=== PATIENT | female | born 1990 | race Caucasian/White ===

== ENCOUNTER 2020-12-10 21:41 | Emergency (ER) | payer OTHER ==
[~2020-12-10] VITALS: Ht 182.9 cm; Wt 113.4 kg
[2020-12-10 21:57] VITALS: BP 148/93
--- NOTE | 2020-12-10 21:59 | NUR ---
To ER bed 04.
--- NOTE | 2020-12-10 22:10 | NUR ---
PT PRESENTED TO ED C/O VAGINAL BLEEDING X 2 DAYS. PT STATES SHES 3 WEEKS AND REPORTS SMAL BLOOD CLOTS IN HER BLOOD. +SCANT BRIGHT RED BLOOD NOTED. +NUASEA AND ABD CRAMPING. PT IS (1 LIVE TERM , AND 1 ). DENIES ANY FOULD VAGINAL DISCHARGE, DYSURIA, VOMITING, OR LIGHTHEADEDNESS. +MAJOR. PT STATES, "I HAD A TOTAL OF 2 PADS OF SMALL AMOUNT OF BLOOD." A&OX4. 5/10 PAIN. STEADY GAIT NOTED. VSS. PMH: DENIES. NKDA.
--- NOTE | 2020-12-10 22:25 | NUR ---
PELVIC EXAM TRAY SET UP AT BEDSIDE.
--- NOTE | 2020-12-10 22:30 | NUR ---
US AT BEDSIDE.
[2020-12-10 22:36] LABS: BASOPHILS # (AUTO) 0.1 K/uL (0.00-0.22); BASOPHILS % (AUTO) 0.5 % (0.0-2.0); EOSINOPHILS # (AUTO) 0.1 K/uL (0-0.4); EOSINOPHILS % (AUTO) 0.9 % (0.0-4.0); HEMATOCRIT 40.4 % (36-48); HEMOGLOBIN 13.6 g/dL (12.0-16.0); LYMPHOCYTES # (AUTO) 3.5 K/uL (2.5-16.5); LYMPHOCYTES % (AUTO) 32.4 % (20.5-51.1); MEAN CORPUSCULAR HEMOGLOBIN 30 pg (27-31); MEAN CORPUSCULAR HGB CONC 34 g/dL (33-37); MEAN CORPUSCULAR VOLUME 88.9 fL (80-94); MONOCYTES # (AUTO) 0.7 K/uL (0.8-1.0); MONOCYTES % (AUTO) 6.3 % (1.7-9.3); NEUTROPHILS # (AUTO) 6.5 K/uL (1.8-7.7); NEUTROPHILS % (AUTO) 59.9 % (42.2-75.2); PLATELET COUNT (AUTO) 320 K/uL (140-450); RED BLOOD CELL COUNT(AUTO) 4.55 MIL/uL (4.20-5.40); RED CELL DISTRIBUTION WIDTH 12.9 % (11.6-13.7); WHITE BLOOD COUNT (AUTO) 10.9 K/uL (4.8-10.8)
[2020-12-11 00:38] VITALS: BP 135/64
--- NOTE | 2020-12-11 00:38 | NUR ---
Patient discharged with v/s stable. Written and verbal after care instructions given and explained. Patient verbalized understanding. Ambulatory with steady gait. All questions addressed prior to discharge. Advised to follow up with PMD.
== END 2020-12-11 00:38 | disposition home or self-care (01) ==
LOC: MED 21:41
DX: N93.9 Abnormal uterine and vaginal bleeding, unspecified (principal)
CPT/HCPCS: 36415; 76817; 81002; 81025; 84702; 85025; 86900; 86901; 99284